=== PATIENT | male | born 1990 ===

== ENCOUNTER 2022-02-23 11:58 | Emergency (ER) | payer OTHER ==
[~2022-02-23] VITALS: Ht 172.7 cm; Wt 59.9 kg
[~2022-02-23 11:58] MED LIST: CEFTIN500 MG PO; KETO10TA2 PO
[2022-02-23] MEDS ORDERED: MUCINEX600 MG PO (12:28)
[2022-02-23] MEDS ORDERED: BENZONATATE200 M1 PO (14:24)
== END 2022-02-23 14:28 | disposition home or self-care (01) ==
LOC: ER 11:58
DX: R05.9 Cough, unspecified (principal); B96.0 Mycoplasma pneumoniae [M. pneumoniae] as the cause of diseases classified elsewhere; Z20.822 Contact with and (suspected) exposure to COVID-19